=== PATIENT | female | born 1945 | race Hispanic/Latino ===

== ENCOUNTER → 2019-09-27 | Outpatient (CLI) | payer MEDICARE, OTHER ==
[~2019-09-27] MED LIST: AMLODIPINE BESYL5 MG PO; ASPIR 8181 MG PO; BENAZEPRIL HCL10 MG PO; FOLIC ACID1 MG PO; GABAPENTIN100 MG PO; LOVASTATIN40 MG PO; METFORMIN HCL500 MG PO; METHOTREXATE2.5 MG PO; ULTRAM50 MG PO
== END ==
LOC: EDSEX → MRI 07:04
PROVIDERS: ATTEND Neurological Surgery
DX: M50.120 Mid-cervical disc disorder, unspecified level (principal)
CPT/HCPCS: 72141

== ENCOUNTER 2019-10-03 09:47 | Outpatient (RCR) | payer MEDICARE, OTHER | END 2019-10-06 | LOC: PT 09:47 → EDSEX 09:47 | PROVIDERS: ATTEND Neurological Surgery | DX: M75.51 Bursitis of right shoulder (principal) ==

== ENCOUNTER 2020-05-21 13:05 | Emergency (ER) | payer MEDICARE, OTHER ==
[~2020-05-21] VITALS: Ht 165.1 cm; Wt 70.3 kg
--- NOTE | 2020-05-21 14:43 | Diagnostic Imaging Report ---
EXAMINATION: Head CT HISTORY: Right hand numbness and weakness COMPARISON: None. TECHNIQUE: Helical axial images of the head were obtained. Reformatted coronal and sagittal images from the axial data. Dose modulation, iterative reconstruction, and/or weight based adjustment of the mA/kV was utilized to reduce the radiation dose to as low as reasonably achievable. Image quality: Motion/streaking artifact limits the evaluation of the skull base and posterior cranial fossa. FINDINGS: Parenchyma: 1. A few scattered white matter hypodensities, most likely nonspecific chronic microvascular ischemic changes. 2. 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 3. No mass or hemorrhage. No CT evidence of acute territorial vascular insult. Extra-axial spaces:No abnormal density. No extra-axial fluid collections Brain volume: Normal for age. Ventricles: No hydrocephalus or displacement. Arteries: No density suggestive of thrombus. Dural sinuses: No abnormal density. Foramen magnum: No mass, Chiari malformation, or basilar invagination. Sella: No obvious mass. Paranasal/mastoid sinuses: Imaged portions unremarkable. Skull/Scalp: No lytic or blastic lesions. No fractures. IMPRESSION: 1. No acute intracranial hemorrhage or cortical infarcts. 2. Mild chronic microvascular ischemic changes. Signed by: Dr. Katalina Sweeney M.D. on 05/21/2020 2:40 PM
--- NOTE | 2020-05-21 14:49 | Emergency Department Note ---
History of Present Illnes History of Present Illness Chief Complaint: General Medicine Complaints History of Present Illness This is a 75 year old male Chief Complaint Comment PT STATED HE WAS WORKING IN HIS YARD THIS MORNING AND HIS RIGHT HAND AND ARM WENT NUMB FOR ABOUT 4 MINUTES, PT STATED IT IS NO LONGER NUMB, PT DENIES PAIN AT THIS TIME, PT STATED HE IS HAVING NO SYMPTOMS AND DIDNT WANT TO COME BUT HIS MADE HIM! NO DISTRESS NOTED IN TRIAGE . Historian: Patient Arrival Mode: Car Onset (how long ago): day(s) (1) Location: RIGHT ARM Quality: WEAKNESS FOR A MINUETE, THEN RESOLVED Radiation: Denies non-radiation, Denies back, Denies neck, Denies extremity, Denies abdomen, Denies periumbilical, Denies flank, Denies proximal, Denies distal, Denies other Severity: mild Onset quality: sudden Duration (how long): hour(s) (1) Timing of current episode: constant Progression: waxing and waning Chronicity: new Context: Denies recent illness, Denies recent surgery, Denies recent immobilization, Denies recent travel, Denies trauma/injury, Denies new medications, Denies hx of DVT/PE, Denies non-compliance w/ medications, Denies other Relieving factors: none Associated symptoms: Reports denies other symptoms Treatments prior to arrival: none Past Medical/Family History Physician Review I have reviewed the patient's past medical and family history. Any updates have been documented here. Past Medical History Recent Fever: No Clinical Suspicion of Infectio: No New/Unexplained Change in Ment: No Past Medical History: Hypertension, Diabetes, Hypothyroidism Other Medical History: BPH Past Surgical History: CABG Other Surgery: PROSTATE TURP CARPAL TUNNEL RIGHT HAND OPEN HEART X2 Social History Smoking Cessation: Never Smoker Counseling Performed: No Alcohol Use: None Any Illegal Drug Use: No Other Last Tetanus: UNK Any Pre-Existing Lines (PICC,: No Review of Systems Review of Systems Constitutional: Reports no symptoms EENTM: Reports no symptoms Cardiovascular: Reports no symptoms Respiratory: Reports no symptoms Gastrointestinal: Reports no symptoms Genitourinary: Reports no symptoms Musculoskeletal: Reports no symptoms Integumentary: Reports no symptoms Neurological: Reports as per HPI Psychological: Reports no symptoms Endocrine: Reports no symptoms Hematological/Lymphatic: Reports no symptoms Physical Exam Related Data Allergies: Coded Allergies: No Known Allergies (Unverified , 08/19/19) Triage Vital Signs Vital Signs Date Time Temp Pulse Resp B/P (MAP) Pulse Ox O2 Delivery O2 Flow Rate FiO2 05/21/20 13:15 97.6 69 17 167/71 100 Room Air Vital signs reviewed: Yes Physical Exam CONSTITUTIONAL Constitutional: Present well-developed, Present well-nourished HENT HENT: Present normocephalic, Present atraumatic, Present oropharynx clear/moist, Present nose normal HENT L/R: Present left ext ear normal, Present right ext ear normal EYES Eyes: Reports PERRL, Reports conjunctivae normal NECK Neck: Present ROM normal PULMONARY Pulmonary: Present effort normal, Present breath sounds normal CARDIOVASCULAR Cardiovascular: Present irregular rhythm, Present heart sounds normal, Present capillary refill normal, Present normal rate GASTROINTESTINAL Abdominal: Present soft, Present nontender, Present bowel sounds normal GENITOURINARY Genitourinary: Present exam deferred SKIN Skin: Present warm, Present dry MUSCULOSKELETAL Musculoskeletal: Present ROM normal NEUROLOGICAL Neurological: Present alert, Present oriented x 3, Present no gross motor or sensory deficits PSYCHOLOGICAL Psychological: Present mood/affect normal, Present judgement normal Results Laboratory Lab results reviewed: Yes Imaging Imaging results reviewed: Yes Procedures 12 Lead ECG Interpretation ECG Interpretation : ECG: ECG 1 [employer]: Interpreted by ED physician Date: May 21, 2020 Time: 13:18 Rhythm: atrial flutter Rate: normal BPM: 73 QRS axis: normal Conduction: 1st degree ST segments normal: Yes T wave inversion: V3, V4, V5, V6 Clinical Impression: abnormal ECG Assessment & Plan Medical Decision Making MDM TIA ,, RADICULOATHY Reassessment Reassessment time: 14:44 Reassessment RESOLVED, PATIENT REFUSED ADMISSION ,WANTS TO GO HOME, DISCUSSED WITH HIM THE RISK OF CVA, PAIENT AWARE Assessment & Plan Final Impression: (1) TIA (transient ischemic attack) (2) Cervical radiculopathy Depart Disposition: HOME, SELF-CARE Last Vital Signs Date Time Temp Pulse Resp B/P (MAP) Pulse Ox O2 Delivery O2 Flow Rate FiO2 05/21/20 13:15 97.6 69 17 167/71 100 05/21/20 13:15 Room Air Home Meds Active Scripts Tramadol Hcl (ULTRAM) 50 Mg Tablet, 50 MG PO TID for 7 Days, #21 TAB Prov:TEN SCHWARTZ MD 08/19/19 Reported Medications Aspirin (ASPIR 81) 81 Mg Tablet.dr, 1 TAB PO HS 08/19/19 Benazepril Hcl (BENAZEPRIL HCL) 10 Mg Tablet, 20 MG PO BID, #30 TAB 08/19/19 Methotrexate Sodium (METHOTREXATE) 2.5 Mg Tablet, 3 TAB PO UD, #30 TAB 08/19/19 Lovastatin (LOVASTATIN) 40 Mg Tablet, 1 TAB PO HS THERAPEUTICALLY SUBSTITUTED WITH SIMVASTATIN 20MG 08/19/19 Gabapentin (GABAPENTIN) 100 Mg Capsule, 1 TAB PO TID 08/19/19 Folic Acid (FOLIC ACID) 1 Mg Tablet, 1 MG PO DAILY, #30 TAB 08/19/19 Amlodipine Besylate (AMLODIPINE BESYLATE) 5 Mg Tablet, 5 MG PO DAILY, #30 TAB 08/19/19 Metformin Hcl (METFORMIN HCL) 500 Mg Tablet, 500 MG PO BID, #60 TAB 08/19/19 JERRICA LINARES MD May 21, 2020 14:49
[2020-05-21 14:58] VITALS: BP 154/69
== END 2020-05-21 15:05 | disposition home or self-care (01) ==
LOC: FSED 13:25
DX: G45.9 Transient cerebral ischemic attack, unspecified (principal); M54.12 Radiculopathy, cervical region; E11.65 Type 2 diabetes mellitus with hyperglycemia; I10 Essential (primary) hypertension; E03.9 Hypothyroidism, unspecified; Z95.1 Presence of aortocoronary bypass graft
CPT/HCPCS: 70450; 80053; 82553; 84484; 85025; 85610; 93005; 99284

== ENCOUNTER 2021-04-02 07:54 | Outpatient (RCR) | payer MEDICARE, OTHER | END 2021-04-06 | disposition home or self-care (01) | LOC: PT 07:54 | PROVIDERS: ATTEND Psychiatry & Neurology Clinical Neurophysiology | DX: M47.22 Other spondylosis with radiculopathy, cervical region (principal); M62.81 Muscle weakness (generalized); M79.601 Pain in right arm ==

== ENCOUNTER → 2021-05-06 | Outpatient (RCR) | payer MEDICARE, OTHER | LOC: PT 04-08 08:53 | PROVIDERS: ATTEND Psychiatry & Neurology Clinical Neurophysiology | DX: M47.22 Other spondylosis with radiculopathy, cervical region (principal); M79.601 Pain in right arm; M62.81 Muscle weakness (generalized) | CPT/HCPCS: 97139 ==

== ENCOUNTER 2021-05-15 07:52 | Outpatient (RCR) | payer MEDICARE, OTHER | END 2021-06-06 | LOC: PT 07:52 | PROVIDERS: ATTEND Psychiatry & Neurology Clinical Neurophysiology | DX: M47.22 Other spondylosis with radiculopathy, cervical region (principal); M79.601 Pain in right arm; M62.81 Muscle weakness (generalized) ==

== ENCOUNTER → 2023-11-23 | Day surgery (SDC) | payer MEDICARE, OTHER ==
[2023-11-23] VITALS (8 sets, daily range): BP systolic 126–168; BP diastolic 71–82; PULSE 50–88; RESP 15–20; TEMP 96.6–97; O2SAT 100
[~2023-11-23] MED LIST changes: +FENTANYL CITRATE/PF 100MCG/2 ML INJ ONE; +GENTAMICIN SULFATE 40 MG/ML 2 ML VIAL ONE; +IOPAMIDOL 610MG/1ML 300 MG/ML VIAL IV ONE; +LIDOCAINE HCL 2% LOCAL 20 ML VIAL ONE; +MIDAZOLAM HCL 2 MG/2 ML VIAL ONE; +Morphine 4mg INJECTION 4 MG/ML INJ ONE; +NITROGLYCERIN/D5W 200 MCG/ML 250 ML ONE; +SODIUM CHLORIDE 0.9% 1000ML 1,000 ML ONE; +SODIUM CHLORIDE 0.9% 1000ML 2,000 ML ONE; +SODIUM CHLORIDE 0.9% 250ML 250 ML ONE; +SODIUM CHLORIDE 0.9% 500ML 500 ML ONE; +VERAPAMIL HCL 2.5 MG/ML 2 ML VIAL ONE; +Vancomycin IV 1 GM VIAL ONE
[2023-11-23 06:27] LABS: BASOPHILS % 0.4 % (0.0-1.0); EOSINOPHILS # (AUTO) 0.1 (0.0-0.4); EOSINOPHILS % 0.6 % (0.0-6.0); HEMATOCRIT 46.5 % (38.2-49.6); LYMPHOCYTES # (AUTO) 2.1 (1.0-3.2); LYMPHOCYTES % 26.3 % (18.0-39.1); MEAN CORPUSCULAR HEMOGLOBIN 31.9 pg (28-32); MEAN CORPUSCULAR HGB CONC 32.3 g/dL (31-35); MEAN CORPUSCULAR VOLUME 98.9 fL (81-99); MONOCYTES # (AUTO) 0.5 (0.2-0.8); MONOCYTES % 6.3 % (4.4-11.3); NEUTROPHILS # (AUTO) 5.2 (2.1-6.9); PLATELET COUNT 147 x10e3/uL (140-360); RED CELL DISTRIBUTION WIDTH 12.7 % (11.7-14.4); WHITE BLOOD COUNT 7.83 x10e3/uL (4.8-10.8)
[2023-11-23 06:40] LABS: INR 1.07; PROTHROMBIN TIME 14.1 seconds (11.9-14.5)
[2023-11-23 06:58] LABS: ANION GAP 12.4 mmol/L (8-16); CREATININE, SERUM 1.09 mg/dL (0.72-1.25); POTASSIUM 4.4 mmol/L (3.5-5.1)
== END | disposition home or self-care (01) ==
LOC: CATH LAB 05:32
PROVIDERS: ATTEND Internal Medicine
DX: I49.5 Sick sinus syndrome (principal); I25.810 Atherosclerosis of coronary artery bypass graft(s) without angina pectoris; I11.0 Hypertensive heart disease with heart failure; I50.9 Heart failure, unspecified; I48.91 Unspecified atrial fibrillation; E78.5 Hyperlipidemia, unspecified; E03.9 Hypothyroidism, unspecified; Z79.02 Long term (current) use of antithrombotics/antiplatelets; Z79.82 Long term (current) use of aspirin; Z79.84 Long term (current) use of oral hypoglycemic drugs; Z79.899 Other long term (current) drug therapy; Z95.1 Presence of aortocoronary bypass graft
CPT/HCPCS: 33208; 36415; 71045; 76937; 80048; 85025; 85610; C1769; C1785; C1898; J1580; J2001; J2250; J2270; J3010; J3370; J7030; J7040; J7050; Q9967; 99152; 99153